=== PATIENT | female | born 1940 | race Two or more races ===

== ENCOUNTER 2024-09-28 23:00 | Emergency (ER) | payer OTHER ==
[~2024-09-28] VITALS: Ht 154.9 cm; Wt 45.4 kg
[2024-09-29] MEDS ORDERED: 0.9 % SODIUM CHLORIDE 1,000 ML IV STA (01:02)
[2024-09-29] MEDS ORDERED: KETOROLAC TROMETHAMINE 15 MG VIAL IV STA (01:03)
[2024-09-29] MEDS ORDERED: MORPHINE SULFATE 4 MG/ML VIAL IV STA (01:03)
[2024-09-29 02:25] LABS: HEMATOCRIT 40.2 % (36.0-45.00); HEMOGLOBIN 13.4 g/dL (12.0-15.00); MEAN CORPUSCULAR HGB CONC 33.4 g/dl (32.0-36.0); PLATELET COUNT 262 K/uL (150-450); RED BLOOD COUNT 4.46 M/uL (4.00-6.00)
[2024-09-29 02:31] LABS: ALBUMIN 3.4 gm/dL (3.4-5.0); BILIRUBIN TOTAL 0.94 mg/dL (0.3-1.2); CALCIUM 9.7 mg/dL (8.5-10.1); CREATININE SERUM 0.55 mg/dL (0.55-1.02); GFR 105.3; GLOBULINA 4.1 G/DL (2.4-3.5); POTASSIUM 3.52 mEq/L (3.5-5.1); TOTAL PROTEIN 7.5 gm/dL (6.4-8.2)
[2024-09-29 03:11] LABS: PARTIAL THROMBOPLASTIN TIME 23.1 SECONDS (22.0-34.0); PROTHROMBIN TIME 10.9 SECONDS (9.0-11.5)
== END 2024-09-29 05:40 | disposition home or self-care (01) ==
LOC: ER 23:03
DX: R10.9 Unspecified abdominal pain (principal); I10 Essential (primary) hypertension; Z91.041 Radiographic dye allergy status
CPT/HCPCS: 36415; 74176; 76700; 96365; 96366; 99284; J1885; J2270; J7030

== ENCOUNTER 2024-12-15 21:32 | Emergency (ER) | payer OTHER ==
[~2024-12-15] VITALS: Ht 144.8 cm; Wt 40.8 kg
[2024-12-15] MEDS ORDERED: TRAMADOL HCL 50 MG TABLET PO STA (23:25)
== END 2024-12-16 09:22 | disposition home or self-care (01) ==
LOC: ER 21:32
DX: S32.591A Other specified fracture of right pubis, initial encounter for closed fracture (principal); W19.XXXA Unspecified fall, initial encounter; Y93.89 Activity, other specified; Y92.89 Other specified places as the place of occurrence of the external cause; Y99.8 Other external cause status; Z91.041 Radiographic dye allergy status